=== PATIENT | female | born 1960 | race Caucasian/White ===

== ENCOUNTER 2019-12-14 14:15 | Observation (INO) ==
[2019-12-14 15:15] LABS: Prothrombin Time 22.8 Seconds (9.4-12.1)
[2019-12-14 15:18] LABS: Basophils % 0.4 %; Eosinophils # 0.1 K/mcL (0.0-0.6); Eosinophils % 0.9 %; Hematocrit 45.9 % (35.3-44.9); Hemoglobin 14.5 g/dL (11.5-15.4); Immature Granulocytes % 0.4 % (0-4); Lymphocytes # 1.8 K/mcL (0.6-4.6); Lymphocytes % 20.2 %; Mean Corpuscular HGB Conc 31.6 g/dL (31.6-35.5); Mean Corpuscular Hemoglobin 29.5 pg (28.0-33.3); Mean Corpuscular Volume 93.3 fL (83.0-100.0); Mean Platelet Volume 9.8 fL (9.4-12.4); Monocytes # 0.5 K/mcL (0.0-1.3); Monocytes % 5.4 %; Neutrophils # 6.5 K/mcL (1.6-8.9); Platelet Count 275 K/mcL (140-400); Red Blood Count 4.92 M/mcL (3.82-4.97); Red Cell Distribution Width 13.4 % (11.5-14.5); Segmented Neutrophils % 72.7 %; White Blood Count 8.9 K/mcL (4.3-11.1)
[2019-12-14 15:37] LABS: Alanine Aminotransferase 14 Units/L (7-52); Albumin 4.1 g/dL (3.5-5.7); Albumin/Globulin Ratio 1.2 (1.1-2.2); Alkaline Phosphatase 80 Units/L (34-104); Aspartate Amino Transferase 13 Units/L (13-39); BUN/Creatinine Ratio 24 (6-26); Bilirubin,Total 0.5 mg/dL (0.3-1.0); Blood Urea Nitrogen 12 mg/dL (8-23); Calcium 9.8 mg/dL (8.6-10.3); Carbon Dioxide 27 mEq/L (23-29); Chloride 104 mEq/L (98-107); Globulin 3.3 g/dL (2.4-3.5); Glucose 132 mg/dL (70-105); Osmolality,Calculated 288 (280-300); Potassium 4.3 mEq/L (3.5-5.1); Sodium 138 mEq/L (136-145); Total Protein 7.4 g/dL (6.4-8.9); Troponin I < 0.03 ng/mL (< 0.04); eGFR For African Americans > 60 (> 60); eGFR For Non-African Americans > 60 (> 60)
[2019-12-14] MEDS ORDERED: Naloxone 0.4 MG/ML INJ IVP PRN (15:53)
[2019-12-14] MEDS ORDERED: Ondansetron 4 MG/2 ML VIAL IVP PRN (15:53)
[2019-12-14] MEDS ORDERED: *HR* Dextrose 50 % in Water (Vial) 50 ML VIAL IVP PRN (16:10)
[2019-12-14] MEDS ORDERED: D5% in Water 1,000 ML IVC PRN (16:10)
[2019-12-14] MEDS ORDERED: Dextrose Gel 15 GM/37.5 ML TUBE PO PRN ×2 (16:10)
[2019-12-14] MEDS ORDERED: Perflutren Lipid Microsphere 1.3 ML in 0.9 % Sodium Chloride 8.7 ML IVP PRN (16:30)
[2019-12-14] MEDS ORDERED: *HR* Warfarin 7.5 MG TABLET PO ONE (18:00)
[2019-12-14] MEDS ORDERED: Warfarin perPT PO PRN (18:00)
[2019-12-14] MEDS: Insulin LISPRO 300 UNITS/3 ML VIAL SQ SCH (18:34)
[2019-12-14] MEDS ORDERED: Nicotine 21 MG PATCH.TD24 TD SCH (22:15)
[2019-12-15 02:02] LABS: INR 1.9; Prothrombin Time 21.4 Seconds (9.4-12.1)
[2019-12-15 02:14] LABS: Chol/HDL Ratio 3.4 (0-4.9)
[2019-12-15 07:39] LABS: Estimated Average Glucose 143 mg/dl
[2019-12-15] MEDS ORDERED: Regadenoson 0.4 MG/5 ML SYRINGE IVP ONE (07:48)
[2019-12-15] MEDS: Insulin LISPRO 300 UNITS/3 ML VIAL SQ SCH ×2 (08:47→11:30)
[2019-12-15] MEDS ORDERED: DilTIAZem CD (24hr) 120 MG CAP.ER.24H PO SCH (09:00)
[2019-12-15 11:29] VITALS: BP 133/82
== END 2019-12-15 13:33 | disposition home or self-care (01) ==
LOC: EMEROOARM 14:15 → 3BNU 14:15
PROVIDERS: ADMIT Internal Medicine; ATTEND Internal Medicine